=== PATIENT | female | born 1990 | race Caucasian/White ===

== ENCOUNTER 2024-12-22 00:06 | Emergency (ER) | payer SELFPAY ==
[~2024-12-22] VITALS: Ht 172.7 cm; Wt 87.0 kg
[2024-12-22 00:12] VITALS: TEMP 36.4; O2SAT 97
[2024-12-22] MEDS: SODIUM CHLORIDE 0.9% 1,000 ML IV ONE (03:26)
[2024-12-22] MEDS: KETOROLAC 15MG/ML VIAL IV ONE (03:26)
[2024-12-22] MEDS: ONDANSETRON HCL 4MG/2ML INJ IV ONE (03:26)
[2024-12-22] MEDS: METOCLOPRAMIDE HCL 10MG/2ML VIAL IV ONE (05:01)
[2024-12-22] MEDS ORDERED: ONDA-239 PO (05:28)
[2024-12-22 06:14] VITALS: BP 116/69; PULSE 74; RESP 12; O2SAT 100
== END 2024-12-22 06:16 | disposition home or self-care (01) ==
LOC: ER 00:13
DX: F10.129 Alcohol abuse with intoxication, unspecified (principal); R11.2 Nausea with vomiting, unspecified; F41.9 Anxiety disorder, unspecified; F32.A Depression, unspecified; Z88.5 Allergy status to narcotic agent; Y90.9 Presence of alcohol in blood, level not specified
CPT/HCPCS: 96361; 96374; 96375; 99284; J1885; J2765; J2405; J7030; Z7610 ×2